=== PATIENT | male | born 1990 | race Caucasian/White ===

== ENCOUNTER 2020-02-18 12:36 | Emergency (ER) | payer SELFPAY ==
[2020-02-18] VITALS (7 sets, daily range): BP systolic 107–128; BP diastolic 60–75; PULSE 53–73; RESP 14–16; TEMP 36.7–36.8; O2SAT 96–100; BMI 25.0
--- NOTE | 2020-02-18 13:59 | DI.CT.S_ITS ---
PROCEDURE: CT KIDNEY URETER BLADDER (KUB) INDICATIONS: left flank pain, urinary discomfort TECHNIQUE: Noncontrast 5 mm thick sections acquired from the diaphragms to the symphysis. 5 mm thick coronal and sagittal reformats were then performed. For radiation dose reduction, the following was used: automated exposure control, adjustment of mA and/or kV according to patient size. COMPARISON: None. FINDINGS: Image quality: Excellent. Lung bases: Lung bases are clear. Heart size is normal. Urinary system: Both kidneys are normal in size. No kidney stones. No hydronephrosis or perinephric fat stranding. Both ureters appear non-dilated throughout their expected courses. Borderline diffuse bladder wall thickening is seen without discrete bladder wall mass, no calcified bladder stones. Other solid organs: Liver is normal in size. Gallbladder is within normal limits. Pancreas is normal in contours. Spleen is normal in size. No adrenal nodules. Peritoneum and bowel: Unenhanced bowel loops demonstrate normal wall thickness and caliber. No free fluid or air. Appendix is visualized and is within normal limits. Nodes and vessels: No retroperitoneal or mesenteric adenopathy by size criteria. Aorta and inferior vena cava are normal in caliber. Abdominal wall: No ventral hernias. Pelvis: No free pelvic fluid. No inguinal hernias or adenopathy. Bones: No suspicious bony lesions. No vertebral body compression fractures. IMPRESSION: 1. No renal stone or hydronephrosis. Normal appearing bilateral ureters. 2. Mild diffuse bladder wall thickening without discrete bladder wall mass. No calcified bladder stone. Infectious inflammatory cystitis cannot be excluded suggest clinical correlation. 3. Normal appendix. No bowel obstruction. No abnormal bowel wall thickening. No free fluid or free air. Dictated by: Iggy Jennings M.D. on 02/18/2020 at 14:21 Approved by: Iggy Jennings M.D. on 02/18/2020 at 14:28
--- NOTE | 2020-02-18 14:05 | ED.MALEGU ---
HPI - Male Genitourinary <JESSICA Ross - Last Filed: 02/18/20 20:42> General Chief complaint: Urogenital-Male Stated complaint: kidney stone Time Seen by Provider: 02/18/20 13:32 Source: patient Mode of arrival: Ambulatory Limitations: no limitations History of Present Illness HPI Narrative: This is a 29-year-old male, nonsmoker, who has no known contributory medical history presents to ED with left flank pain with urinary urgency, discomfort since yesterday without hematuria. Patient was encouraged by his girlfriend who has kidney stone frequently for an evaluation. Patient denies fever, chills, nausea or vomiting. Denies any aggravating or relieving factors. Patient denies unusual penile discharge and is not concerned for STIs. Patient denies abdominal pain, dyspnea, or chest pain. Patient feels dehydrated for last couple of days since his work schedule has been changed and had not hydrate orally. Patient reports he had donated plasma twice recently. He has no known history of kidney stones. Related Data Previous Rx's Medication Instructions Recorded cyclobenzaprine 10 mg PO BEDTIME PRN #7 tab 02/18/20 Allergies Allergy/AdvReac Type Severity Reaction Status Date / Time No Known Drug Allergies Allergy Verified 02/18/20 12:57 Review of Systems <JESSICA Ross - Last Filed: 02/18/20 20:42> Review of Systems Narrative: General: Denies fever, chills, fatigue, malaise, sweats. HEENT: Denies sinus pain, ear pain, sore throat, difficulty swallowing, dizziness. Respiratory: Denies dyspnea, cough, wheezing, hemoptysis, sputum. Cardiovascular: Denies chest pain, palpitations, orthopnea, edema. Gastrointestinal: Denies nausea, vomiting, abdominal pain, diarrhea, constipation, melena. : See HPI Musculoskeletal: See HPI Skin: Denies rash, skin lesions, or other. Neurologic: Denies weakness, headache, numbness, change in speech, confusion, seizures, incoordination. Psychiatric: No concerning psychosocial issues. 12-point review of systems is negative except for those stated above. Patient History <JESSICA Ross Last Filed: 02/18/20 20:42> Medical History Amputated finger Social History Smoking Status: Unknown if ever smoked Smoking Status: Unknown if ever smoked alcohol intake frequency: holidays/special occasions only Substance Use Type: marijuana Exam <JESSICA Ross - Last Filed: 02/18/20 20:42> Narrative Exam Narrative: GEN: Alert, oriented x 3, well appearing and nourished, and in no acute distress. Head: Normal cephalic, atraumatic. No scalp or temporal tenderness, palpable mass or rash. ENT: Hearing grossly intact. Nose without bleeding, purulent discharge or deviation. Mucous membrane dry, no mucosal lesion. Throat without erythema, tonsillar hypertrophy or exudate. Uvula in midline, airway patent. Neck: Trachea in midline. No JVD, non-tender without lymphadenopathy. No masses or thyroid megaly. Supple, non-tender and no meningeal signs. CARDIAC: Normal regular rate and rhythm without murmurs, gallops, or rubs. No chest wall tenderness. No peripheral edema, cyanosis or pallor. Capillary refill is less than 2 seconds. RESPIRATORY: Lungs are clear to auscultate bilaterally. No cough, wheezes, rales, or rhonchi. No stridor, respiratory distress, increase work of breathing, or accessary muscle used. ABD: Abdomen soft and non-distended. Mild tenderness to palpate in left quadrant. No guarding or rebound tenderness to palpate. Bowel sounds are normal in all 4 quadrants. There is no palpable masses or organomegaly. EXT: Full painless ROM of all extremities with no loss of sensation, strength, effusion or edema. SKIN: Warm, dry, normal color for patient. No erythema, lesions or rash over visible areas. BACK: No deformity, crepitance, rash. Mild left flank tenderness to percuss. NEUROLOGICAL: Alert and oriented to place, time and person. Sensation and motor function intact bilaterally. No facial droops, dysphasia. PSYCHIATRIC: Good judgement and reason, without hallucinations, abnormal affect or abnormal behaviors during the examination. Patient is not suicidal. Initial Vital Signs Initial Vital Signs: Vital Signs Temperature 98.1 F 02/18/20 12:57 Pulse Rate 73 02/18/20 12:57 Respiratory Rate 14 02/18/20 12:57 Blood Pressure 128/75 02/18/20 12:57 Pulse Oximetry 96 02/18/20 12:57 <Diego Molina MD - Last Filed: 04/04/20 20:00> Initial Vital Signs Initial Vital Signs: Vital Signs Temperature 98.1 F 02/18/20 12:57 Pulse Rate 73 02/18/20 12:57 Respiratory Rate 14 02/18/20 12:57 Blood Pressure 128/75 02/18/20 12:57 Pulse Oximetry 96 02/18/20 12:57 Scores <JESSICA Ross - Last Filed: 02/18/20 20:42> GCS [place] coma scale eye opening: Spontaneous [place] coma scale verbal response: Orientated [place] coma scale motor response: Obey commands [place] coma scale total score: 15 Course <JESSICA Ross - Last Filed: 02/18/20 20:42> Orders Ordered: Discontinued Medications Sodium Chloride (Normal Saline 0.9%) 1,000 mls @ 1,000 mls/hr IV BOLUS ONE Stop: 02/18/20 14:58 Last Infusion: 02/18/20 15:50 Dose: 0 mls/hr Documented by: Admin: 02/18/20 14:27 Dose: 1,000 mls/hr Documented by: PETER Ketorolac Tromethamine (Ketorolac 60 Mg/2 Ml Vial) 15 mg IV NOW ONE Stop: 02/18/20 14:00 Last Admin: 02/18/20 14:28 Dose: 15 mg Documented by: PETER Vital Signs Vital signs: Vital Signs - 8 hr 02/18/20 12:57 02/18/20 13:50 02/18/20 14:00 Temperature 98.1 F Pulse Rate 73 63 63 Respiratory Rate 14 Blood Pressure 128/75 Pulse Oximetry 96 98 100 02/18/20 14:30 02/18/20 15:00 02/18/20 15:24 Temperature Pulse Rate 55 L 53 L Respiratory Rate Blood Pressure 114/60 Pulse Oximetry 97 98 02/18/20 15:49 Temperature 98.2 F Pulse Rate 67 Respiratory Rate 16 Blood Pressure 107/67 Pulse Oximetry 98 <Diego Molina MD - Last Filed: 04/04/20 20:00> Orders Ordered: Discontinued Medications Sodium Chloride (Normal Saline 0.9%) 1,000 mls @ 1,000 mls/hr IV BOLUS ONE Stop: 02/18/20 14:58 Last Infusion: 02/18/20 15:50 Dose: 0 mls/hr Documented by: Admin: 02/18/20 14:27 Dose: 1,000 mls/hr Documented by: PETER Ketorolac Tromethamine (Ketorolac 60 Mg/2 Ml Vial) 15 mg IV NOW ONE Stop: 02/18/20 14:00 Last Admin: 02/18/20 14:28 Dose: 15 mg Documented by: PETER Vital Signs Vital signs: Vital Signs - 8 hr 02/18/20 12:57 02/18/20 13:50 02/18/20 14:00 Temperature 98.1 F Pulse Rate 73 63 63 Respiratory Rate 14 Blood Pressure 128/75 Pulse Oximetry 96 98 100 02/18/20 14:30 02/18/20 15:00 02/18/20 15:24 Temperature Pulse Rate 55 L 53 L Respiratory Rate Blood Pressure 114/60 Pulse Oximetry 97 98 02/18/20 15:49 Temperature 98.2 F Pulse Rate 67 Respiratory Rate 16 Blood Pressure 107/67 Pulse Oximetry 98 MDM - Male Genitourinary <JESSICA Ross - Last Filed: 02/18/20 20:42> Differential Diagnosis Differential diagnosis: Likely urinary tract infection and other (Kidney infection, kidney stone, musculoskeletal back pain) Medical Records Attestation: I reviewed the patient's medical records. Lab Data Attestation: I reviewed the patient's lab results. Result diagrams: 02/18/20 14:25 02/18/20 14:25 Labs: Lab Results 02/18/20 02/18/20 Range/Units 14:25 14:25 WBC 7.1 (4.5-11.0) X10^3/uL RBC 4.82 (4.5-5.9) X10^6/uL Hgb 14.5 (13.5-17.5) g/dL Hct 42.7 (41-53) % MCV 88.6 (80-100) fL MCH 30.0 (26-34) PG MCHC 33.9 (30-36) % RDW 12.8 (11.6-14.8) % Plt Count 263 (150-400) X10^3/uL Neut % (Auto) 66.5 (50-75) % Lymph % (Auto) 24.1 L (25-40) % [place] % (Auto) 7.8 (3-14) % Eos % (Auto) 0.7 L (2-4) % Baso % (Auto) 0.9 (0-2) % Neut # (Auto) 4800 (6729-8911) /uL Lymph # (Auto) 1700 (6306-6898) /uL [place] # (Auto) 600 (0-900) /uL Eos # (Auto) 0 (0-450) /uL Baso # (Auto) 100 (0-100) /uL Sodium 139 (137-145) mmol/L Potassium 3.8 (3.4-5.1) mmol/L Chloride 102 (98-107) mmol/L Carbon Dioxide 33 H (22-32) mmol/L BUN 15 (9-20) mg/dL Creatinine 0.70 (0.66-1.25) mg/dL Estimated GFR > 60.0 (>60) mL/min BUN/Creatinine Ratio 21.4 (6-22) Glucose 97 (70-100) mg/dL Calcium 9.4 (8.4-10.2) mg/dL Urine Dip Bedside Urine Glucose Negative Bedside Urine Ketone - Negative Bedside Urine Occult Blood - Negative Bedside Urine Protein - Negative Bedside Urine Urobilinogen - Negative Bedside Urine Nitrite - Negative Bedside Urine Leukocytes - Negative Esterase Imaging Data CT-KUB: Radiologist's Impression: [address] [id number] Scan ReportSigned Patient: Ari Broderick#: [id number]: 1990Acct:[id number]/Sex: 29 / MDate of Service: 02/18/20Loc: EDAccession Number: [id number] Procedure: CT kidney ureter bladder (KUB) Ordering Provider: Brooks Bustamante PROCEDURE: CT KIDNEY URETER BLADDER (KUB) INDICATIONS: left flank pain, urinary discomfort TECHNIQUE: Noncontrast 5 mm thick sections acquired from the diaphragms to the symphysis. 5 mm thick coronal and sagittal reformats were then performed. For radiation dose reduction, the following was used: automated exposure control, adjustment of mA and/or kV according to patient size. COMPARISON: None. FINDINGS: Image quality: Excellent. Lung bases: Lung bases are clear. Heart size is normal. Urinary system: Both kidneys are normal in size. No kidney stones. No hydronephrosis or perinephric fat stranding. Both ureters appear non-dilated throughout their expected courses. Borderline diffuse bladder wall thickening is seen without discrete bladder wall mass, no calcified bladder stones. Other solid organs: Liver is normal in size. Gallbladder is within normal limits. Pancreas is normal in contours. Spleen is normal in size. No adrenal nodules. Peritoneum and bowel: Unenhanced bowel loops demonstrate normal wall thickness and caliber. No free fluid or air. Appendix is visualized and is within normal limits. Nodes and vessels: No retroperitoneal or mesenteric adenopathy by size criteria. Aorta and inferior vena cava are normal in caliber. Abdominal wall: No ventral hernias. Pelvis: No free pelvic fluid. No inguinal hernias or adenopathy. Bones: No suspicious bony lesions. No vertebral body compression fractures. IMPRESSION: 1. No renal stone or hydronephrosis. Normal appearing bilateral ureters. 2. Mild diffuse bladder wall thickening without discrete bladder wall mass. No calcified bladder stone. Infectious inflammatory cystitis cannot be excluded suggest clinical correlation. 3. Normal appendix. No bowel obstruction. No abnormal bowel wall thickening. No free fluid or free air. Dictated by: Iggy Jennings M.D. on 02/18/2020 at 14:21 Approved by: Iggy Jennings M.D. on 02/18/2020 at 14:28 [facility] Narrative Medical decision making narrative: This is a 29-year-old male who presents to ED with left flank pain and concerned for kidney stone. Urine test indicates no infection and no hematuria. Physical exam was not consistent with renal colic pain. Left flank mild tenderness to palpate. Patient is afebrile and within normal limits of blood pressure. No leukocytosis. Normal kidney function test. KUB CT test result indicates no renal stone or hydronephrosis. Normal appearing bilateral ureter. Normal appendix. Mildly diffuse bladder or thickening without bladder wall mass and labs are not consistent with cystitis/infection. Patient was treated with IV fluid and Toradol without significant improvement. At this time, will treat patient as musculoskeletal back strain. He was discharged to home with Flexeril to use it at night and advised to use [id number] Tylenol and or Motrin as needed for pain. Return precautions were discussed with patient and he verbalized understanding in agreement with the treatment plan. <Diego Molina MD - Last Filed: 04/04/20 20:00> Lab Data Labs: Lab Results 02/18/20 02/18/20 Range/Units 14:25 14:25 WBC 7.1 (4.5-11.0) X10^3/uL RBC 4.82 (4.5-5.9) X10^6/uL Hgb 14.5 (13.5-17.5) g/dL Hct 42.7 (41-53) % MCV 88.6 (80-100) fL MCH 30.0 (26-34) PG MCHC 33.9 (30-36) % RDW 12.8 (11.6-14.8) % Plt Count 263 (150-400) X10^3/uL Neut % (Auto) 66.5 (50-75) % Lymph % (Auto) 24.1 L (25-40) % [place] % (Auto) 7.8 (3-14) % Eos % (Auto) 0.7 L (2-4) % Baso % (Auto) 0.9 (0-2) % Neut # (Auto) 4800 (6292-5610) /uL Lymph # (Auto) 1700 (4984-3813) /uL [place] # (Auto) 600 (0-900) /uL Eos # (Auto) 0 (0-450) /uL Baso # (Auto) 100 (0-100) /uL Sodium 139 (137-145) mmol/L Potassium 3.8 (3.4-5.1) mmol/L Chloride 102 (98-107) mmol/L Carbon Dioxide 33 H (22-32) mmol/L BUN 15 (9-20) mg/dL Creatinine 0.70 (0.66-1.25) mg/dL Estimated GFR > 60.0 (>60) mL/min BUN/Creatinine Ratio 21.4 (6-22) Glucose 97 (70-100) mg/dL Calcium 9.4 (8.4-10.2) mg/dL Urine Dip Bedside Urine Glucose Negative Bedside Urine Ketone - Negative Bedside Urine Occult Blood - Negative Bedside Urine Protein - Negative Bedside Urine Urobilinogen - Negative Bedside Urine Nitrite - Negative Bedside Urine Leukocytes - Negative Esterase Discharge Plan Departure Patient Disposition: Home Clinical Impression: Low back pain Instructions: DI for Low Back Pain Activity Restrictions/Additional Instructions: You have been diagnosed with [left lower back pain. No signs of infection, kidney stones, or UTI according to labs, CT, urine test. It is likely musculoskeletal back pain.]. What to do: *Take your medications as directed. You can continue to take [id number] Tylenol and or Motrin as needed for discomfort. Please take food with Motrin. Take Flexeril which is muscle relaxant and night to help with discomfort. *Follow up with your primary care provider in 2-3 days, call for an appointment. Let them know you were seen in the ED and that we asked you to be seen in follow up. *Return to ED if you have any new, worsening, or concerning symptoms, such as [worsening pain, chest pain, breathing difficulty, unable to tolerate fluids, fever or any acute concerns]. Prescriptions: New cyclobenzaprine 10 mg tablet 10 mg PO BEDTIME PRN (Reason: muscle spasm) Qty: 7 RF: 0 Referrals: [facility] [Outside]
[2020-02-18] MEDS: SODIUM CHLORIDE 0.9% 1,000 ML 1000 ML IV (14:27)
[2020-02-18] MEDS: KETOROLAC 60 MG/2 ML VIAL 15 MG IV (14:28)
[2020-02-18 14:35] LABS: Add Manual Diff / Slide Review NO; Basophils Absolute Auto 100 /uL (0-100); Basophils Percent Auto 0.9 % (0-2); Eosinophils Absolute Auto 0 /uL (0-450); Eosinophils Percent Auto 0.7 % (2-4); Hematocrit 42.7 % (41-53); Hemoglobin 14.5 g/dL (13.5-17.5); Lymphocytes Absolute Auto 1700 /uL (1100-4500); Lymphocytes Percent Auto 24.1 % (25-40); Mean Corpuscular HGB Conc 33.9 % (30-36); Mean Corpuscular Volume 88.6 fL (80-100); Monocytes Absolute Auto 600 /uL (0-900); Monocytes Percent Auto 7.8 % (3-14); Neutrophils Absolute Auto 4800 /uL (1500-7000); Neutrophils Percent Auto 66.5 % (50-75); Platelet Count 263 X10^3/uL (150-400); Red Blood Cell Count 4.82 X10^6/uL (4.5-5.9); Red Cell Distribution Width 12.8 % (11.6-14.8); White Blood Cell Count 7.1 X10^3/uL (4.5-11.0)
[2020-02-18 14:50] LABS: BUN Creatinine Ratio 21.4 (6-22); Blood Urea Nitrogen 15 mg/dL (9-20); Calcium 9.4 mg/dL (8.4-10.2); Carbon Dioxide 33 mmol/L (22-32); Chloride 102 mmol/L (98-107); Estimated Glomerular Filt Rate > 60.0 mL/min (>60); Glucose 97 mg/dL (70-100); HEMOLYSIS < 15 (0-50); Potassium 3.8 mmol/L (3.4-5.1); Sodium 139 mmol/L (137-145)
== END 2020-02-18 15:51 | disposition home or self-care (01) ==
PROVIDERS: Emergency Provider Nurse Practitioner Family
DX: M54.5 Low back pain (principal); R10.9 Unspecified abdominal pain; Z87.442 Personal history of urinary calculi; R39.15 Urgency of urination
CPT/HCPCS: 36415; 74176; 80048; 81003; 85025; 96361; 96374; 99281; 99284; J1885